=== PATIENT | male | born 1980 | race Caucasian/White ===

== ENCOUNTER 2019-02-21 14:29 | Emergency (ER) | payer BC ==
[2019-02-21 14:53] LABS: #Basophils 0.1 thou/uL (0.0-0.2); #Eosinphils 0.4 thou/uL (0.0-0.7); #Lymphocytes 2.4 thou/uL (1.20-3.40); #Monocytes 0.7 thou/uL (0.11-0.59); #Neutrophils 3.3 thou/uL (1.40-6.50); %Basophils 0.9 % (0.0-1.0); %Eosinophils 5.7 % (0.0-10.0); %Lymphocytes 34.5 % (21.0-51.0); %Monocytes 10.5 % (0.0-10.0); %Neutrophils 48.3 % (42.0-75.0); Hemoglobin 15.1 g/dL (14.0-18.0); Mean Corpuscular HGB CONC 33.8 g/dL (32.0-36.0); Mean Corpuscular Hemoglobin 31.3 pg (27.0-31.0); Mean Corpuscular Volume 92.5 fL (78.0-98.0); Mean Platelet Volume 6.7 fL (7.4-10.4); Platelet Count 220 thou/uL (130-400); Red Blood Cell (RBC) Count 4.84 mill/uL (4.70-6.10); White Blood Cell (WBC) Count 6.8 thou/uL (4.8-10.8)
[2019-02-21 15:17] LABS: ALT (SGPT) 50 U/L (8-55); AST (SGOT) 36 U/L (5-34); Albumin 4.6 g/dL (3.5-5.0); Alkaline Phosphatase 77 U/L (40-150); Anion Gap 13 mmol/L (10-20); BUN (Urea Nitrogen) 16 mg/dL (8.9-20.6); Bilirubin, Total 1.6 mg/dL (0.2-1.2); CK (CPK) 220 U/L (30-200); Calc. Creatinine Clearance 0 mL/min (70-130); Calcium 9.6 mg/dL (7.8-10.44); Carbon Dioxide 26 mmol/L (22-29); Chloride 106 mmol/L (98-107); Estimated GFR-MDRD Greater than 90; Globulin 2.6 g/dL (2.4-3.5); Glucose 97 mg/dL (70-105); Potassium 4.2 mmol/L (3.5-5.1); Protein, Total 7.2 g/dL (6.0-8.3); Sodium 141 mmol/L (136-145)
--- NOTE | 2019-02-21 15:35 | RAD ---
PORTABLE CHEST: Date: 02/21/19 HISTORY: Chest pain. FINDINGS: Lungs are clear. Heart and mediastinum unremarkable. IMPRESSION: No acute abnormality. POS: OFF
== END 2019-02-21 18:45 | disposition home or self-care (01) ==
LOC: ERS 14:29
DX: E86.0 Dehydration (principal); R07.9 Chest pain, unspecified; F17.220 Nicotine dependence, chewing tobacco, uncomplicated
CPT/HCPCS: 36415; 71045; 80053; 82550; 84484; 85025; 93005; 96360; 96361

== ENCOUNTER 2019-11-30 14:29 | Outpatient (CLI) | payer BC ==
--- NOTE | 2019-11-30 16:27 | RAD ---
LUMBAR SPINE TWO VIEWS: History: Low back pain, radiating down the left leg. FINDINGS: No acute fracture, subluxation, or bony destruction is seen. There is mild anterior wedging of the galeas perior endplates of T11 and T12 vertebral bodies. IMPRESSION: As above. POS: OFF
--- NOTE | 2019-11-30 16:29 | RAD ---
AP PELVIS: History: Hyperostosis. Back pain radiating to the left lower extremity. FINDINGS: No fracture, dislocation, or bony destruction was seen. IMPRESSION: As above. POS: OFF
== END 2019-11-30 14:30 | disposition home or self-care (01) ==
LOC: BICRAD 14:29
PROVIDERS: ATTEND Family Medicine
DX: M53.1 Cervicobrachial syndrome (principal); M46.1 Sacroiliitis, not elsewhere classified; M62.838 Other muscle spasm; M54.6 Pain in thoracic spine
CPT/HCPCS: 72100; 72170

== ENCOUNTER 2022-11-04 17:23 | Observation (INO) | payer BC, SELFPAY ==
[2022-11-04] MEDS ORDERED: Acetaminophen 325 MG TAB PO PRN (21:26)
[2022-11-04] MEDS ORDERED: Ondansetron ODT 4 MG TAB PO PRN (21:26)
[2022-11-04] MEDS ORDERED: Senokot S 8.6-50 MG TAB PO PRN (21:26)
[2022-11-04] MEDS ORDERED: Nicotine 14 MG PATCH TD SCH (21:30)
[2022-11-05 03:22] VITALS: BMI 34.7
[2022-11-05 06:29] LABS: Anion Gap 10 mmol/L (10-20); BUN (Urea Nitrogen) 15 mg/dL (8.9-20.6); Calc. Creatinine Clearance 169 mL/min (70-130); Calcium 9.2 mg/dL (7.8-10.44); Carbon Dioxide 28 mmol/L (22-29); Cardiac Risk 4.6 (Less than 4.5); Chloride 104 mmol/L (98-107); Cholesterol 194 mg/dl (< 200 Desired); Estimated GFR 109; Glucose 113 mg/dL (70-105); HDL Cholesterol 42 mg/dL (>60 Neg Risk); LDL Cholesterol, Calculated 102 mg/dL; Potassium 4.2 mmol/L (3.5-5.1); Sodium 138 mmol/L (136-145); Triglycerides 248 mg/dL (Less than 150)
[2022-11-05 08:12] VITALS: TEMP 97.8
[2022-11-05] MEDS ORDERED: Aspirin 81 mg Enteric Coated Tablet PO SCH (09:00)
[2022-11-05] MEDS ORDERED: Famotidine 20 MG TAB PO SCH (09:00)
[2022-11-05 16:22] VITALS: BP 132/74
[2022-11-05 17:50] LABS: INR-International Normal Ratio 0.9; Prothrombin Time 12.3 sec (12.0-14.7)
[2022-11-05 17:51] LABS: PTT 25.8 sec (22.9-36.1)
[2022-11-05 17:53] LABS: D-Dimer Test 0.37 *mcg/mL (0.27-0.43)
[2022-11-05] MEDS ORDERED: Atorvastatin Calcium 20 MG TAB PO SCH (21:00)
[2022-11-07 14:29] LABS: Factor VIII Test 151.5 % ACTIVE (56-157); HEX PHOS LA Tube 1 35.1 SEC; HEX PHOS LA Tube 2 34.5 SEC; Hexagonal Phospholipid Neut 0.6 SEC (0-8.0)
[2022-11-07 14:31] LABS: Protein C Activity 115 % (78-152)
[2022-11-08] MEDS ORDERED: FLU VACC QS2022-23(6MOS UP)/PF 60 MCG/0.5 ML SYRINGE IM ONE (09:00)
== END 2022-11-05 19:46 | disposition home or self-care (01) ==
LOC: NEURO 17:23
PROVIDERS: ADMIT Family Medicine; ATTEND Family Medicine
DX: G45.9 Transient cerebral ischemic attack, unspecified (principal); E78.5 Hyperlipidemia, unspecified; F17.220 Nicotine dependence, chewing tobacco, uncomplicated; I08.1 Rheumatic disorders of both mitral and tricuspid valves; Z88.1 Allergy status to other antibiotic agents; Z20.822 Contact with and (suspected) exposure to COVID-19
CPT/HCPCS: 36415; 70551; 80048; 80061; 83090; 85240; 85300; 85303; 85305; 85307; 85379; 85598; 85610; 85730; 86147; 93306; G0378; U0003; U0005